=== PATIENT | male | born 1980 | race African-American/Black ===

== ENCOUNTER 2021-05-23 23:46 | Emergency (ER) | payer SELFPAY ==
[2021-05-23 23:50] VITALS: BP 183/105; PULSE 70; RESP 16; TEMP 36.3; O2SAT 100
[2021-05-23 23:52] LABS: Glucose Point of Care 151 mg/dl (65-105)
[2021-05-24] VITALS (8 sets, daily range): BP systolic 161–190; BP diastolic 81–109; PULSE 72–78; RESP 16–20; O2SAT 98–100
--- NOTE | 2021-05-24 01:12 | ECG_ITS ---
Measurements Intervals [place] Rate: 72 P: 54 AK: 172 QRS: 58 QRSD: 90 T: 64 QT: 418 QTc: 460 Interpretive Statements SINUS RHYTHM VOLTAGE CRITERIA FOR LVH ST ELEVATION IN DIFFUSE LEADS- PROBABLY EARLY REPOLARIZATION ABNORMALITY BORDERLINE ECG Electronically Signed On 05-24-2021 7:07:27 CDT by Major [employer] D.O.
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
[2021-05-24 01:17] LABS: Glucose Point of Care 129 mg/dl (65-105)
--- NOTE | 2021-05-24 01:30 | PC.NURSE ---
This RN asked pt to attempt to provide urine sample. Pt states When I feel like going, Ill let you know . Call light within reach.
[2021-05-24 01:31] LABS: Basophils Absolute Auto 0.1 K/mm3 (0.0-0.1); Basophils Percent Auto 0.8 % (0.2-1.2); Eosinophils Absolute Auto 0.1 K/mm3 (0-0.3); Hematocrit 33.7 % (42.0-52.0); Hemoglobin 10.5 g/dL (14.0-18.0); Immature Granulocyte Absolute 0.02 K/mm3 (0.00-0.031); Immature Granulocyte Percent A 0.3 % (0-0.5); Lymphocytes Absolute Auto 1.14 K/mm3 (0.9-3.2); Lymphocytes Percent Auto 17.1 % (18.3-44.2); Mean Corpuscular HGB Conc 31.2 g/dl (32-36); Mean Corpuscular Hemoglobin 30.8 pg (26-34); Mean Corpuscular Volume 98.8 fl (80-100); Monocytes Absolute Auto 0.4 K/mm3 (0.1-0.6); Monocytes Percent Auto 5.9 % (2.6-8.5); Neutrophils Absolute Auto 4.9 K/mm3 (1.3-6.7); Neutrophils Percent Auto 73.9 % (45.5-73.1); Platelet Count Result 296 k/mm3 (150-375); Red Blood Count 3.41 M/mm3 (4.6-6.20); Red Cell Distribution Width 11.9 % (11.5-14.5); White Blood Count 6.7 K/mm3 (4.5-10.0)
[2021-05-24 01:44] LABS: Alanine Aminotransferase 30 U/L (4-50); Albumin Level 3.5 g/dL (3.5-5.1); Alkaline Phosphatase 97 U/L (38-126); Anion Gap 7 mmol/L (8-16); Aspartate Amino Transferase 33 U/L (17-59); Bilirubin,Total 0.4 mg/dL (0.2-1.3); Blood Urea Nitrogen 45 mg/dL (9-20); Calcium 8.4 mg/dL (8.4-10.2); Carbon Dioxide 22 mmol/L (22-30); Chloride 107 mmol/L (98-107); Estimated CRCL calculation 54 ml/min; Estimated Glomerular Filt Rate 48; Glucose 139 mg/dL (65-110); Potassium 4.6 mmol/L (3.4-5.0); Sodium 136 mmol/L (137-145)
[2021-05-24 01:45] LABS: Ethanol < 10 mg/dL (<10)
[2021-05-24] MEDS: SODIUM CHLORIDE 0.9% IV 1,000 ML 999 ML IV CONT (05:13)
[2021-05-24 05:16] LABS: Add Urine Microscopic? YES; Appearance Urine Clear (Clear); Bacteria Urine Trace /hpf; Bilirubin Urine Negative (Negative); Blood Urine Negative (Negative); Color Urine Yellow (Yellow); Glucose Urine UA 2+ mg/dL (Negative); Ketones Urine Negative (Negative); Leukocyte Esterase Ur Negative LEU/UL (Negative); Nitrate Urine Negative (Negative); Protein Urine 3+ mg/dL (Negative); Urobilinogen Urine Negative mg/dL (<2.0); WBC Urine 0-3 /hpf
[2021-05-24 05:27] LABS: Amphetamine Screen Urine Negative (Negative); Barbiturate Screen Urine Negative (Negative); Benzodiazepines Screen Urine Negative (Negative); Cannabinoid Screen Urine Negative (Negative); Cocaine Screen Urine Negative (Negative); Methadone Screen Urine Negative (Negative); Opiate Screen Urine Negative (Negative); Phencyclidine Screen Urine Negative (Negative)
[2021-05-24] MEDS: cloNIDine HCL 0.1 MG TABLET PO (06:06)
[2021-05-24] MEDS: METOPROLOL TARTRATE 50 MG TAB 25 MG PO (07:39)
[2021-05-24] MEDS: LOSARTAN POTASSIUM 100 MG TABLET PO (07:40)
[2021-05-24] MEDS: hydrALAZINE HCL 20 MG/ML VIAL 10 MG IV PUSH (08:12)
== END 2021-05-24 08:31 | disposition home or self-care (01) ==
PROVIDERS: Emergency Provider General Practice
DX: I10 Essential (primary) hypertension (principal); N18.9 Chronic kidney disease, unspecified; E11.22 Type 2 diabetes mellitus with diabetic chronic kidney disease; I12.9 Hypertensive chronic kidney disease with stage 1 through stage 4 chronic kidney disease, or unspecified chronic kidney disease; R94.31 Abnormal electrocardiogram [ECG] [EKG]
CPT/HCPCS: 36415; 80053; 80307; 81001; 82948; 85025; 93005; 96361; 96374; 99284; A9270; J0360; J7030